=== PATIENT | female | born 1995 | race African-American/Black ===

== ENCOUNTER 2024-06-24 12:35 | Emergency (ER) | payer MEDICAID ==
[~2024-06-24] VITALS: Ht 175.3 cm; Wt 84.0 kg
[2024-06-24 12:36] VITALS: TEMP 98.3; O2SAT 99
[2024-06-24] MEDS: IBUPROFEN 600MG TABLET PO NR (13:24)
[2024-06-24 14:54] VITALS: BP 104/52; PULSE 85; RESP 14; O2SAT 97
== END 2024-06-24 14:54 | disposition home or self-care (01) ==
LOC: ER 12:35
DX: S62.617A Displaced fracture of proximal phalanx of left little finger, initial encounter for closed fracture (principal); X58.XXXA Exposure to other specified factors, initial encounter; Y93.89 Activity, other specified; Y92.89 Other specified places as the place of occurrence of the external cause; Y99.8 Other external cause status
CPT/HCPCS: 29125; 73130; 99283